=== PATIENT | female | born 1945 | race African-American/Black ===

== ENCOUNTER 2021-12-21 07:49 | Inpatient (IN) | payer OTHER, MEDICAID ==
[~2021-12-21] VITALS: Ht 165.1 cm; Wt 69.0 kg
[2021-12-21] MEDS ORDERED: SODIUM CHLORIDE 0.9% 1,000 ML IV ONE (08:00)
[2021-12-21 08:42] LABS: CHLORIDE 83 mEq/L (98-107)
[2021-12-21 08:43] LABS: EOSINOPHILS % 0.7 % (0.0-5.0); HEMATOCRIT. 32.5 % (36.0-48.0); HEMOGLOBIN. 11.1 g/dL (12.0-16.0); LYMPHOCYTES % 20.8 % (20.0-50.0); MEAN CORPUSCULAR HEMOGLOBIN 29.4 pg (28.0-32.0); MEAN CORPUSCULAR VOLUME 85.8 fL (81.0-99.0); MEAN PLATELET VOLUME 11.7 fl (7.4-10.4); MONOCYTES % 7.6 % (2.0-8.0); NEUTROPHILS % 69.9 % (40.0-76.0); PLATELET 198 x1000/uL (130-400); RED BLOOD CELL COUNT 3.78 mill/uL (4.2-5.4); RED CELL DISTRIBUTION WIDTH 12.2 % (11.6-14.6)
[2021-12-21 08:53] LABS: BETA HYDROXYBUTYRATE 0.2 mMol/L (0.0-0.3)
[2021-12-21 08:57] LABS: BG BASE EXCESS 10.2 mmol/L (-2.0-2.0); BG CARBOXYHEMOGLOBIN 0.1 % (0.5-1.5); BG DEOXYHEMOGLOBIN 1.3 % (0.0-5.0); BG FRACTION INSPIRED OXYGEN 21; BG HCO3 ACT 31.2 mmol/L (22.0-26.0); BG METHEMOGLOBIN 0.3 % (0.0-1.5); BG OXYGEN SATURATION 98.7 % (92.0-98.5); BG OXYHEMOGLOBIN 98.3 % (94.0-97.0); BG PCO2 29.8 mmHg (35.0-45.0); BG PH 7.638 (7.350-7.450); BG PO2 111.9 mmHg (75.0-100.0); BG SAMPLE SITE RIGHT RADIAL; BG TOTAL HEMOGLOBIN 11.2 g/dL (12.0-18.0); BG VENT MODE ROOM AIR
[2021-12-21] MEDS ORDERED: KCL 20MEQ/100ML PREMIX 100 ML IV ONE (10:00)
[2021-12-21] MEDS ORDERED: POTASSIUM CHLORIDE 20MEQ TABLET SR PO ONE (10:00)
[2021-12-21] MEDS ORDERED: BLOOD SUGAR DIAGNOSTIC STRIP TEST SCH (10:45)
[2021-12-21] MEDS ORDERED: DEXTROSE 50% WATER 50ML SYRINGE IV PRN (10:45)
[2021-12-21] MEDS ORDERED: IPRATROPIUM/ALBUTEROL 0.5-3(2.5)MG/3ML NEB NEB PRN (11:45)
[2021-12-21] MEDS ORDERED: ACETAMINOPHEN 650MG SUPP PR PRN (11:45)
[2021-12-21] MEDS ORDERED: LORAZEPAM 0.5MG TABLET PO PRN (11:45)
[2021-12-21] MEDS ORDERED: HYDROCODONE/ACETAMINOPHEN 5/325MG TABLET PO PRN (11:45)
[2021-12-21] MEDS ORDERED: ACETAMINOPHEN 650MG/20.3ML UDC GT PRN (11:45)
[2021-12-21] MEDS ORDERED: DOCUSATE SODIUM 100MG CAPSULE PO PRN (11:45)
[2021-12-21] MEDS ORDERED: DIPHENHYDRAMINE 50MG/ML VIAL IV PRN (11:45)
[2021-12-21] MEDS ORDERED: MAGNESIUM/ALUMINUM HYDROXIDE/SIMETHICONE 30ML UDC PO PRN (11:45)
[2021-12-21] MEDS ORDERED: ONDANSETRON HCL 4MG/2ML INJ IV PRN (11:45)
[2021-12-21] MEDS ORDERED: NA PHOS,M-B/NA PHOS,DI-BA ENEMA 118ML PR PRN (11:45)
[2021-12-21] MEDS ORDERED: GUAIFENESIN 200MG/10ML SUGAR FREE UDC PO PRN (11:45)
[2021-12-21] MEDS ORDERED: PIPERACILLIN/TAZOBACTAM 3.375 G in DEXTROSE 5% WATER 50 ML IV SCH (11:45)
[2021-12-21] MEDS: BLOOD SUGAR DIAGNOSTIC STRIP TEST SCH ×2 (12:00→15:42)
[2021-12-21] MEDS ORDERED: VANCOMYCIN 1G PREMIX 200 ML IV SCH (13:00)
[2021-12-21] MEDS ORDERED: PIPERACILLIN/TAZ 3.375G PREMIX 50 ML IV SCH (13:00)
[2021-12-21] MEDS ORDERED: NALOXONE HCL 0.4MG/ML VIAL IV PRN (13:00)
[2021-12-21 13:06] LABS: CLARITY URINE TURBID (CLEAR); COLOR URINE YELLOW (YELLOW); KETONES URINE NEGATIVE (NEGATIVE); LEUKOCYTE ESTERASE URINE 3+ (NEGATIVE); NITRITE URINE NEGATIVE (NEGATIVE); OCCULT BLOOD URINE 1+ (NEGATIVE); PROTEIN URINE 2+ (NEGATIVE); SPECIFIC GRAVITY URINE 1.012 (1.005-1.030); UROBILINOGEN URINE 0.2 E.U./dL (0.2-1.0)
[2021-12-21 13:20] LABS: SODIUM URINE RANDOM 62 mEq/L
[2021-12-21 13:23] LABS: PHOSPHORUS 3.3 mg/dL (2.5-4.9)
[2021-12-21] MEDS: INSULIN LISPRO 100 UNITS/ML SUBCUT SCH ×2 (14:00→15:51)
[2021-12-21] MEDS: SODIUM CHLORIDE 0.9% 1,000 ML IV SCH ×2 (15:32→23:32)
[2021-12-21 16:07] LABS: BG BASE EXCESS 8.3 mmol/L (-2.0-2.0); BG CARBOXYHEMOGLOBIN 0.3 % (0.5-1.5); BG DEOXYHEMOGLOBIN 1.8 % (0.0-5.0); BG FRACTION INSPIRED OXYGEN 21; BG HCO3 ACT 29.6 mmol/L (22.0-26.0); BG METHEMOGLOBIN 0.3 % (0.0-1.5); BG OXYGEN SATURATION 98.2 % (92.0-98.5); BG OXYHEMOGLOBIN 97.6 % (94.0-97.0); BG PCO2 29.7 mmHg (35.0-45.0); BG PH 7.616 (7.350-7.450); BG TOTAL HEMOGLOBIN 10.7 g/dL (12.0-18.0); BG VENT MODE ROOM AIR
[2021-12-21 18:00] VITALS: BP 138/69
[2021-12-21] MEDS: INSULIN GLARGINE UD 100 UNITS/ML SYR SUBCUT NR (18:00)
[2021-12-21 19:11] VITALS: BP 138/69
[2021-12-21 19:18] LABS: CREATINE KINASE MB FRACTION 4.8 ng/mL (0.5-3.6)
[2021-12-21 20:00] VITALS: BP 135/84
[2021-12-21] MEDS: FAMOTIDINE 20MG TABLET PO SCH (21:00)
[2021-12-21] MEDS ORDERED: POTASSIUM CHLORIDE INJ 50 MEQ in DEXT 5% WATER 250 ML IV ONE (21:45)
[2021-12-21] MEDS ORDERED: INSULIN GLARGINE UD 100 UNITS/ML SYR SUBCUT SCH (22:00)
[2021-12-22] VITALS: BP 140/61
[2021-12-22 00:21] LABS: CREATINE KINASE MB FRACTION 5.2 ng/mL (0.5-3.6)
[2021-12-22] MEDS: PIPERACILLIN/TAZOBACTAM 3.375 G in DEXTROSE 5% WATER 50 ML IV SCH ×3 (00:23→20:46)
[2021-12-22] MEDS: INSULIN GLARGINE UD 100 UNITS/ML SYR SUBCUT NR (00:54)
[2021-12-22] MEDS: INSULIN LISPRO 100 UNITS/ML SUBCUT SCH ×11 (01:27→20:00)
[2021-12-22] MEDS: BLOOD SUGAR DIAGNOSTIC STRIP TEST SCH ×11 (02:20→20:44)
[2021-12-22] MEDS: KCL 20MEQ/100ML X 2 FOR TOTAL KCL 40MEQ/200ML IV SCH ×2 (02:44→07:02)
[2021-12-22] MEDS ORDERED: KCL 10MEQ/50ML PREMIX 50 ML IV NR (03:00)
[2021-12-22 04:00] VITALS: BP 142/62
[2021-12-22 07:38] LABS: BASOPHILS % 0.7 % (0.0-2.0); EOSINOPHILS % 0.7 % (0.0-5.0); HEMATOCRIT. 27.6 % (36.0-48.0); HEMOGLOBIN. 9.8 g/dL (12.0-16.0); LYMPHOCYTES % 15.6 % (20.0-50.0); MEAN CORPUSCULAR HEMOGLOBIN 30.2 pg (28.0-32.0); MEAN CORPUSCULAR VOLUME 85.5 fL (81.0-99.0); MEAN PLATELET VOLUME 11.6 fl (7.4-10.4); MONOCYTES % 8.4 % (2.0-8.0); NEUTROPHILS % 74.6 % (40.0-76.0); PLATELET 172 x1000/uL (130-400); RED BLOOD CELL COUNT 3.22 mill/uL (4.2-5.4); RED CELL DISTRIBUTION WIDTH 12.5 % (11.6-14.6)
[2021-12-22 07:50] LABS: CHLORIDE 94 mEq/L (98-107)
[2021-12-22 08:00] VITALS: BP 118/62
[2021-12-22] MEDS ORDERED: POTASSIUM CHLORIDE 20MEQ TABLET SR PO SCH (10:00)
[2021-12-22] MEDS: INSULIN GLARGINE UD 100 UNITS/ML SYR SUBCUT SCH ×2 (10:49→21:21)
[2021-12-22 12:00] VITALS: BP 118/46
[2021-12-22] MEDS: POTASSIUM CHLORIDE 20MEQ TABLET SR PO SCH (12:19)
[2021-12-22] MEDS ORDERED: LIDOCAINE HCL/PF 1% 2ML VIAL ONE (14:10)
[2021-12-22] MEDS: SODIUM CHLORIDE 0.9% 1,000 ML IV SCH (14:16)
[2021-12-22 15:02] LABS: BG CARBOXYHEMOGLOBIN 0.3 % (0.5-1.5); BG HCO3 ACT 30.3 mmol/L (22.0-26.0); BG OXYHEMOGLOBIN 96.7 % (94.0-97.0); BG PCO2 38.1 mmHg (35.0-45.0); BG PH 7.518 (7.350-7.450); BG PO2 84.5 mmHg (75.0-100.0); BG SAMPLE SITE RIGHT RADIAL; BG TOTAL HEMOGLOBIN 10.4 g/dL (12.0-18.0); BG VENT MODE ROOM AIR
[2021-12-22 16:00] VITALS: BP 120/48
[2021-12-22 20:00] VITALS: BP 154/88
[2021-12-22] MEDS: FAMOTIDINE 20MG TABLET PO SCH (21:20)
[2021-12-23] VITALS: BP 162/63
[2021-12-23] MEDS: BLOOD SUGAR DIAGNOSTIC STRIP TEST SCH ×6 (00:19→20:00)
[2021-12-23] MEDS: INSULIN LISPRO 100 UNITS/ML SUBCUT SCH ×6 (00:20→22:31)
[2021-12-23 04:00] VITALS: BP 132/50
[2021-12-23 05:37] LABS: BASOPHILS % 0.7 % (0.0-2.0); EOSINOPHILS % 1.2 % (0.0-5.0); HEMATOCRIT. 28.2 % (36.0-48.0); HEMOGLOBIN. 9.6 g/dL (12.0-16.0); LYMPHOCYTES % 19.6 % (20.0-50.0); MEAN CORPUSCULAR HEMOGLOBIN 29.7 pg (28.0-32.0); MEAN CORPUSCULAR VOLUME 87.4 fL (81.0-99.0); MEAN PLATELET VOLUME 11.6 fl (7.4-10.4); NEUTROPHILS % 69.5 % (40.0-76.0); PLATELET 168 x1000/uL (130-400); RED BLOOD CELL COUNT 3.23 mill/uL (4.2-5.4); RED CELL DISTRIBUTION WIDTH 12.2 % (11.6-14.6)
[2021-12-23 07:54] LABS: BG BASE EXCESS 2.9 mmol/L (-2.0-2.0); BG CARBOXYHEMOGLOBIN 0.3 % (0.5-1.5); BG DEOXYHEMOGLOBIN 2.6 % (0.0-5.0); BG FRACTION INSPIRED OXYGEN 21; BG HCO3 ACT 26.6 mmol/L (22.0-26.0); BG METHEMOGLOBIN 0.2 % (0.0-1.5); BG OXYGEN SATURATION 97.4 % (92.0-98.5); BG OXYHEMOGLOBIN 96.9 % (94.0-97.0); BG PCO2 37.2 mmHg (35.0-45.0); BG PH 7.472 (7.350-7.450); BG PO2 99.5 mmHg (75.0-100.0); BG SAMPLE SITE RIGHT RADIAL; BG TOTAL HEMOGLOBIN 9.6 g/dL (12.0-18.0); BG VENT MODE ROOM AIR
[2021-12-23 08:00] VITALS: BP 166/81
[2021-12-23] MEDS: POTASSIUM CHLORIDE 20MEQ TABLET SR PO SCH (09:29)
[2021-12-23] MEDS: CLONIDINE 0.1MG TABLET PO PRN (09:29)
[2021-12-23] MEDS: PIPERACILLIN/TAZOBACTAM 3.375 G in DEXTROSE 5% WATER 50 ML IV SCH ×2 (09:29→22:30)
[2021-12-23] MEDS: SODIUM CHLORIDE 0.9% 1,000 ML IV SCH (09:29)
[2021-12-23] MEDS: INSULIN GLARGINE UD 100 UNITS/ML SYR SUBCUT SCH ×2 (11:08→22:30)
[2021-12-23 12:00] VITALS: BP 131/57
[2021-12-23 16:00] VITALS: BP 127/55
[2021-12-23 20:00] VITALS: BP 148/62
[2021-12-23] MEDS: FAMOTIDINE 20MG TABLET PO SCH (22:30)
[2021-12-24] VITALS (16 sets, daily range): BP systolic 143–185; BP diastolic 63–73
[2021-12-24] MEDS: INSULIN LISPRO 100 UNITS/ML SUBCUT SCH ×6 (00:26→21:22)
[2021-12-24] MEDS: BLOOD SUGAR DIAGNOSTIC STRIP TEST SCH ×6 (00:26→20:00)
[2021-12-24 02:13] LABS: HEPATITIS B SURFACE ANTIGEN NEGATIVE
[2021-12-24] MEDS: SODIUM CHLORIDE 0.9% 1,000 ML IV SCH ×2 (04:32→23:31)
[2021-12-24] MEDS: CLONIDINE 0.1MG TABLET PO PRN (05:24)
[2021-12-24] MEDS: POTASSIUM CHLORIDE 20MEQ TABLET SR PO SCH (09:05)
[2021-12-24] MEDS: PIPERACILLIN/TAZOBACTAM 3.375 G in DEXTROSE 5% WATER 50 ML IV SCH (09:05)
[2021-12-24 09:22] LABS: PROTHROMBIN TIME 10.9 sec (9.6-11.0)
[2021-12-24] MEDS ORDERED: HEPARIN 1000 UNITS/ML 10ML ONE (09:29)
[2021-12-24] MEDS ORDERED: LIDOCAINE HCL 1% 30ML VIAL (10MG/ML) ONE (09:29)
[2021-12-24] MEDS: INSULIN GLARGINE UD 100 UNITS/ML SYR SUBCUT SCH ×2 (10:00→21:22)
[2021-12-24] MEDS ORDERED: FENTANYL CITRATE/PF 50MCG/ML 2ML VIAL ONE (10:27)
[2021-12-24] MEDS ORDERED: FENTANYL CITRATE/PF 50MCG/ML 2ML VIAL IV ONE (10:45)
[2021-12-24 16:25] LABS: BASOPHILS % 0.9 % (0.0-2.0); EOSINOPHILS % 1.7 % (0.0-5.0); HEMOGLOBIN. 8.8 g/dL (12.0-16.0); LYMPHOCYTES % 15.5 % (20.0-50.0); MEAN CORPUSCULAR HEMOGLOBIN 30.4 pg (28.0-32.0); MEAN CORPUSCULAR VOLUME 89.5 fL (81.0-99.0); MEAN PLATELET VOLUME 11.2 fl (7.4-10.4); MONOCYTES % 7.6 % (2.0-8.0); NEUTROPHILS % 74.3 % (40.0-76.0); PLATELET 171 x1000/uL (130-400); RED BLOOD CELL COUNT 2.91 mill/uL (4.2-5.4); RED CELL DISTRIBUTION WIDTH 12.7 % (11.6-14.6)
[2021-12-24] MEDS ORDERED: MEROPENEM 500 MG in SODIUM CHLORIDE 0.9% 50 ML IV SCH (16:30)
[2021-12-24 17:31] LABS: CHLORIDE 108 mEq/L (98-107)
[2021-12-24] MEDS: MEROPENEM 1000MG in NORMAL SALINE 100ML IV SCH (17:33)
[2021-12-24] MEDS ORDERED: VANCOMYCIN 500MG PREMIX 100 ML IV SCH (21:00)
[2021-12-24] MEDS: FAMOTIDINE 20MG TABLET PO SCH (21:21)
[2021-12-25] VITALS: BP 161/72
[2021-12-25] MEDS: BLOOD SUGAR DIAGNOSTIC STRIP TEST SCH ×7 (00:31→23:47)
[2021-12-25] MEDS: CLONIDINE 0.1MG TABLET PO PRN ×2 (00:44→10:23)
[2021-12-25 04:00] VITALS: BP 121/67
[2021-12-25] MEDS: INSULIN LISPRO 100 UNITS/ML SUBCUT SCH ×7 (04:00→23:48)
[2021-12-25 07:36] LABS: BASOPHILS % 0.8 % (0.0-2.0); HEMATOCRIT. 25.7 % (36.0-48.0); HEMOGLOBIN. 8.9 g/dL (12.0-16.0); LYMPHOCYTES % 17.2 % (20.0-50.0); MEAN CORPUSCULAR HEMOGLOBIN 30.5 pg (28.0-32.0); MEAN CORPUSCULAR VOLUME 87.9 fL (81.0-99.0); MEAN PLATELET VOLUME 11.1 fl (7.4-10.4); MONOCYTES % 9.3 % (2.0-8.0); NEUTROPHILS % 70.7 % (40.0-76.0); PLATELET 165 x1000/uL (130-400); RED BLOOD CELL COUNT 2.92 mill/uL (4.2-5.4); RED CELL DISTRIBUTION WIDTH 12.4 % (11.6-14.6)
[2021-12-25 08:00] VITALS: BP 166/68
[2021-12-25] MEDS: POTASSIUM CHLORIDE 20MEQ TABLET SR PO SCH (09:00)
[2021-12-25] MEDS ORDERED: HEPARIN SODIUM 1,000 UNIT/1ML VIAL IV SCH (09:00)
[2021-12-25] MEDS: INSULIN GLARGINE UD 100 UNITS/ML SYR SUBCUT SCH ×2 (10:22→22:11)
[2021-12-25 12:00] VITALS: BP 149/68
[2021-12-25 16:00] VITALS: BP 145/56
[2021-12-25] MEDS: MEROPENEM 1000MG in NORMAL SALINE 100ML IV SCH (17:27)
[2021-12-25 20:00] VITALS: BP 159/67
[2021-12-25] MEDS: SODIUM CHLORIDE 0.9% 1,000 ML IV SCH (20:26)
[2021-12-25] MEDS: FAMOTIDINE 20MG TABLET PO SCH (22:10)
[2021-12-26] VITALS: BP 167/58
[2021-12-26 04:00] VITALS: BP 110/59
[2021-12-26] MEDS: BLOOD SUGAR DIAGNOSTIC STRIP TEST SCH ×5 (04:00→20:37)
[2021-12-26] MEDS: INSULIN LISPRO 100 UNITS/ML SUBCUT SCH ×5 (04:00→20:38)
[2021-12-26 08:00] VITALS: BP 130/58
[2021-12-26] MEDS: POTASSIUM CHLORIDE 20MEQ TABLET SR PO SCH ×2 (09:00→13:08)
[2021-12-26] MEDS ORDERED: LIDOCAINE HCL/PF 1% 10 MG/ML 5ML VIAL ONE (09:06)
[2021-12-26] MEDS: INSULIN GLARGINE UD 100 UNITS/ML SYR SUBCUT SCH (10:28)
[2021-12-26 12:00] VITALS: BP 138/53
[2021-12-26 12:47] LABS: HEMATOCRIT 29.4 % (36.0-48.0); HEMOGLOBIN 9.8 g/dL (12.0-16.0); MEAN CORPUSCULAR HEMOGLOBIN 29.8 pg (28.0-32.0); MEAN CORPUSCULAR VOLUME 89.3 fL (81.0-99.0); PLATELET 132 x1000/uL (130-400); RED CELL DISTRIBUTION WIDTH 12.8 % (11.6-14.6)
[2021-12-26 16:00] VITALS: BP 159/52
[2021-12-26] MEDS: MEROPENEM 1000MG in NORMAL SALINE 100ML IV SCH (18:00)
[2021-12-26 20:00] VITALS: BP 169/67
[2021-12-26] MEDS: FAMOTIDINE 20MG TABLET PO SCH (20:38)
[2021-12-26] MEDS: CLONIDINE 0.1MG TABLET PO PRN (20:39)
[2021-12-27] VITALS: BP 171/81
[2021-12-27] MEDS: BLOOD SUGAR DIAGNOSTIC STRIP TEST SCH ×6 (00:51→20:00)
[2021-12-27 01:21] LABS: BASOPHILS % 0.9 % (0.0-2.0); EOSINOPHILS % 1.8 % (0.0-5.0); HEMATOCRIT. 24.3 % (36.0-48.0); HEMOGLOBIN. 8.2 g/dL (12.0-16.0); MEAN CORPUSCULAR HEMOGLOBIN 30.3 pg (28.0-32.0); MEAN CORPUSCULAR VOLUME 89.7 fL (81.0-99.0); MEAN PLATELET VOLUME 10.3 fl (7.4-10.4); MONOCYTES % 9.8 % (2.0-8.0); NEUTROPHILS % 65.5 % (40.0-76.0); PLATELET 160 x1000/uL (130-400); RED BLOOD CELL COUNT 2.71 mill/uL (4.2-5.4); RED CELL DISTRIBUTION WIDTH 12.5 % (11.6-14.6)
[2021-12-27] MEDS: CLONIDINE 0.1MG TABLET PO PRN (02:05)
[2021-12-27] MEDS: INSULIN LISPRO 100 UNITS/ML SUBCUT SCH ×6 (04:00→22:54)
[2021-12-27] MEDS: CLONIDINE 0.2MG TABLET PO PRN (06:27)
[2021-12-27 08:00] VITALS: BP 109/43
[2021-12-27] MEDS ORDERED: INSULIN GLARGINE UD 100 UNITS/ML SYR SUBCUT SCH (09:00)
[2021-12-27] MEDS: POTASSIUM CHLORIDE 20MEQ TABLET SR PO SCH (09:41)
[2021-12-27] MEDS ORDERED: HYDR-4135 MT (09:58)
[2021-12-27 12:00] VITALS: BP 172/79
[2021-12-27] MEDS: HYDRALAZINE HCL 50MG TABLET PO SCH ×2 (15:05→22:53)
[2021-12-27 16:00] VITALS: BP 135/57
[2021-12-27] MEDS: MEROPENEM 1000MG in NORMAL SALINE 100ML IV SCH (17:27)
[2021-12-27 20:00] VITALS: BP 140/65
[2021-12-27] MEDS: FAMOTIDINE 20MG TABLET PO SCH (22:52)
[2021-12-28] VITALS: BP 164/65
[2021-12-28] MEDS: BLOOD SUGAR DIAGNOSTIC STRIP TEST SCH ×7 (00:36→23:56)
[2021-12-28 04:00] VITALS: BP 157/69
[2021-12-28] MEDS: INSULIN LISPRO 100 UNITS/ML SUBCUT SCH ×7 (04:00→23:57)
[2021-12-28] MEDS: HYDRALAZINE HCL 50MG TABLET PO SCH ×3 (05:40→21:04)
[2021-12-28 07:16] LABS: BASOPHILS % 1.1 % (0.0-2.0); EOSINOPHILS % 1.9 % (0.0-5.0); HEMATOCRIT. 22.9 % (36.0-48.0); HEMOGLOBIN. 7.8 g/dL (12.0-16.0); LYMPHOCYTES % 22.5 % (20.0-50.0); MEAN CORPUSCULAR HEMOGLOBIN 30.6 pg (28.0-32.0); MEAN CORPUSCULAR VOLUME 89.6 fL (81.0-99.0); MONOCYTES % 10.2 % (2.0-8.0); NEUTROPHILS % 64.3 % (40.0-76.0); PLATELET 152 x1000/uL (130-400); RED BLOOD CELL COUNT 2.55 mill/uL (4.2-5.4); RED CELL DISTRIBUTION WIDTH 12.7 % (11.6-14.6)
[2021-12-28 08:00] VITALS: BP 166/62
[2021-12-28] MEDS: POTASSIUM CHLORIDE 20MEQ TABLET SR PO SCH (09:20)
[2021-12-28] MEDS: CLONIDINE 0.2MG TABLET PO PRN (09:20)
[2021-12-28] MEDS: INSULIN GLARGINE UD 100 UNITS/ML SYR SUBCUT SCH (10:33)
[2021-12-28 12:00] VITALS: BP 164/59
[2021-12-28] MEDS: MEROPENEM 1000MG in NORMAL SALINE 100ML IV SCH (18:08)
[2021-12-28 20:00] VITALS: BP 164/60
[2021-12-28] MEDS: FAMOTIDINE 20MG TABLET PO SCH (21:04)
[2021-12-28 22:37] LABS: HEPATITIS B SURFACE ANTIGEN NEGATIVE
[2021-12-29] VITALS: BP 169/57
[2021-12-29] MEDS: BLOOD SUGAR DIAGNOSTIC STRIP TEST SCH ×5 (03:54→21:41)
[2021-12-29] MEDS: INSULIN LISPRO 100 UNITS/ML SUBCUT SCH ×5 (03:54→21:54)
[2021-12-29 04:00] VITALS: BP 145/59
[2021-12-29] MEDS: HYDRALAZINE HCL 50MG TABLET PO SCH ×3 (05:27→21:52)
[2021-12-29 08:00] VITALS: BP 113/65
[2021-12-29] MEDS: POTASSIUM CHLORIDE 20MEQ TABLET SR PO SCH (08:22)
[2021-12-29] MEDS: INSULIN GLARGINE UD 100 UNITS/ML SYR SUBCUT SCH (10:27)
[2021-12-29 12:00] VITALS: BP 140/72
[2021-12-29 16:00] VITALS: BP 118/65
[2021-12-29 20:00] VITALS: BP 128/53
[2021-12-29] MEDS: FAMOTIDINE 20MG TABLET PO SCH (21:52)
[2021-12-30] VITALS: BP 138/60
[2021-12-30 04:00] VITALS: BP 155/55
[2021-12-30] MEDS: BLOOD SUGAR DIAGNOSTIC STRIP TEST SCH ×4 (06:34→21:24)
[2021-12-30] MEDS: INSULIN LISPRO 100 UNITS/ML SUBCUT SCH ×4 (06:34→21:25)
[2021-12-30] MEDS: HYDRALAZINE HCL 50MG TABLET PO SCH ×3 (06:57→21:24)
[2021-12-30 07:49] LABS: BASOPHILS % 0.8 % (0.0-2.0); EOSINOPHILS % 1.5 % (0.0-5.0); LYMPHOCYTES % 19.2 % (20.0-50.0); MEAN CORPUSCULAR HEMOGLOBIN 30.4 pg (28.0-32.0); MEAN CORPUSCULAR VOLUME 89.4 fL (81.0-99.0); MEAN PLATELET VOLUME 10.2 fl (7.4-10.4); MONOCYTES % 10.6 % (2.0-8.0); NEUTROPHILS % 67.9 % (40.0-76.0); PLATELET 159 x1000/uL (130-400); RED BLOOD CELL COUNT 2.33 mill/uL (4.2-5.4)
[2021-12-30 08:00] VITALS: BP 103/61
[2021-12-30 08:38] LABS: HEMOGLOBIN. 7.1 g/dL (12.0-16.0)
[2021-12-30 08:39] LABS: HEMATOCRIT. 20.8 % (36.0-48.0)
[2021-12-30] MEDS: POTASSIUM CHLORIDE 20MEQ TABLET SR PO SCH (08:54)
[2021-12-30] MEDS: INSULIN GLARGINE UD 100 UNITS/ML SYR SUBCUT SCH (09:30)
[2021-12-30 11:57] VITALS: BP 142/56
[2021-12-30 16:00] VITALS: BP 126/63
[2021-12-30 20:00] VITALS: BP 135/60
[2021-12-30] MEDS: FAMOTIDINE 20MG TABLET PO SCH (21:24)
[2021-12-31] VITALS (12 sets, daily range): BP systolic 112–190; BP diastolic 42–85
[2021-12-31] MEDS: CLONIDINE 0.2MG TABLET PO PRN ×2 (00:21→15:57)
[2021-12-31] MEDS: BLOOD SUGAR DIAGNOSTIC STRIP TEST SCH ×4 (06:08→20:26)
[2021-12-31] MEDS: INSULIN LISPRO 100 UNITS/ML SUBCUT SCH ×4 (06:08→20:29)
[2021-12-31] MEDS: HYDRALAZINE HCL 50MG TABLET PO SCH ×3 (06:39→22:57)
[2021-12-31 07:58] LABS: BASOPHILS % 0.9 % (0.0-2.0); EOSINOPHILS % 1.8 % (0.0-5.0); MEAN CORPUSCULAR HEMOGLOBIN 30.3 pg (28.0-32.0); MEAN CORPUSCULAR VOLUME 90.2 fL (81.0-99.0); MEAN PLATELET VOLUME 10.1 fl (7.4-10.4); MONOCYTES % 9.5 % (2.0-8.0); NEUTROPHILS % 63.8 % (40.0-76.0); PLATELET 153 x1000/uL (130-400); RED BLOOD CELL COUNT 2.16 mill/uL (4.2-5.4); RED CELL DISTRIBUTION WIDTH 12.9 % (11.6-14.6)
[2021-12-31 08:01] LABS: HEMATOCRIT. 19.5 % (36.0-48.0); HEMOGLOBIN. 6.5 g/dL (12.0-16.0)
[2021-12-31] MEDS: POTASSIUM CHLORIDE 20MEQ TABLET SR PO SCH (09:50)
[2021-12-31] MEDS: INSULIN GLARGINE UD 100 UNITS/ML SYR SUBCUT SCH (09:51)
[2021-12-31 18:11] LABS: HEMOGLOBIN 7.8 g/dL (12.0-16.0)
[2021-12-31 18:37] LABS: FOLIC ACID (FOLATE) SERUM 4.1 ng/mL (>5.38)
[2021-12-31 18:40] LABS: TOTAL IRON BINDING CAPACITY 186 ug/dL (250-450)
[2021-12-31] MEDS: FAMOTIDINE 20MG TABLET PO SCH (20:27)
[2021-12-31] MEDS: EPOETIN ALFA 10000UNITS/ML VIAL SUBCUT SCH (22:57)
[2022-01-01] VITALS: BP 179/81
[2022-01-01] MEDS: CLONIDINE 0.2MG TABLET PO PRN (01:42)
[2022-01-01 04:00] VITALS: BP 184/77
[2022-01-01] MEDS: HYDRALAZINE HCL 50MG TABLET PO SCH ×4 (05:41→23:08)
[2022-01-01] MEDS: BLOOD SUGAR DIAGNOSTIC STRIP TEST SCH ×4 (05:45→21:57)
[2022-01-01] MEDS: INSULIN LISPRO 100 UNITS/ML SUBCUT SCH ×4 (06:21→23:09)
[2022-01-01 06:30] LABS: EOSINOPHILS % 1.9 % (0.0-5.0); HEMATOCRIT. 24.8 % (36.0-48.0); HEMOGLOBIN. 8.3 g/dL (12.0-16.0); MEAN CORPUSCULAR HEMOGLOBIN 28.9 pg (28.0-32.0); MEAN CORPUSCULAR VOLUME 86.1 fL (81.0-99.0); MEAN PLATELET VOLUME 9.6 fl (7.4-10.4); MONOCYTES % 7.8 % (2.0-8.0); NEUTROPHILS % 67.3 % (40.0-76.0); PLATELET 156 x1000/uL (130-400); RED BLOOD CELL COUNT 2.88 mill/uL (4.2-5.4); RED CELL DISTRIBUTION WIDTH 17.8 % (11.6-14.6)
[2022-01-01 08:00] VITALS: BP 162/59
[2022-01-01] MEDS: POTASSIUM CHLORIDE 20MEQ TABLET SR PO SCH (09:11)
[2022-01-01] MEDS: INSULIN GLARGINE UD 100 UNITS/ML SYR SUBCUT SCH (10:13)
[2022-01-01 12:00] VITALS: BP 170/70
[2022-01-01 16:00] VITALS: BP 189/78
[2022-01-01 20:00] VITALS: BP 163/62
[2022-01-01] MEDS: PANTOPRAZOLE 40MG DR TABLET PO SCH (23:07)
[2022-01-02] VITALS: BP 195/76
[2022-01-02] MEDS: CLONIDINE 0.2MG TABLET PO PRN ×2 (00:25→09:42)
[2022-01-02 04:00] VITALS: BP 191/75
[2022-01-02] MEDS: INSULIN LISPRO 100 UNITS/ML SUBCUT SCH ×4 (06:46→20:57)
[2022-01-02] MEDS: BLOOD SUGAR DIAGNOSTIC STRIP TEST SCH ×4 (06:46→20:57)
[2022-01-02] MEDS: HYDRALAZINE HCL 50MG TABLET PO SCH ×3 (06:47→20:57)
[2022-01-02] MEDS: PANTOPRAZOLE 40MG DR TABLET PO SCH ×2 (06:47→20:55)
[2022-01-02 07:26] LABS: BASOPHILS % 1.1 % (0.0-2.0); EOSINOPHILS % 1.8 % (0.0-5.0); HEMATOCRIT. 23.7 % (36.0-48.0); HEMOGLOBIN. 8.1 g/dL (12.0-16.0); LYMPHOCYTES % 21.8 % (20.0-50.0); MEAN CORPUSCULAR VOLUME 85.2 fL (81.0-99.0); MEAN PLATELET VOLUME 9.9 fl (7.4-10.4); MONOCYTES % 8.7 % (2.0-8.0); NEUTROPHILS % 66.6 % (40.0-76.0); PLATELET 154 x1000/uL (130-400); RED BLOOD CELL COUNT 2.79 mill/uL (4.2-5.4)
[2022-01-02 08:00] VITALS: BP 176/70
[2022-01-02] MEDS: POTASSIUM CHLORIDE 20MEQ TABLET SR PO SCH (09:41)
[2022-01-02] MEDS: INSULIN GLARGINE UD 100 UNITS/ML SYR SUBCUT SCH (09:44)
[2022-01-02] MEDS ORDERED: INSULIN LISPRO 100 UNITS/ML SUBCUT ONE (11:45)
[2022-01-02 12:00] VITALS: BP 187/96
[2022-01-02 16:00] VITALS: BP 183/81
[2022-01-02] MEDS ORDERED: HYDRALAZINE HCL 50MG TABLET PO NR (17:00)
[2022-01-02 20:00] VITALS: BP 191/74
[2022-01-02] MEDS: EPOETIN ALFA 10000UNITS/ML VIAL SUBCUT SCH (20:56)
[2022-01-03] VITALS: BP 191/73
[2022-01-03] MEDS: CLONIDINE 0.2MG TABLET PO PRN ×3 (00:35→05:46)
[2022-01-03 04:00] VITALS: BP 180/83
[2022-01-03] MEDS: HYDRALAZINE HCL 50MG TABLET PO SCH ×3 (04:23→21:13)
[2022-01-03] MEDS: PANTOPRAZOLE 40MG DR TABLET PO SCH ×2 (05:46→21:10)
[2022-01-03] MEDS: INSULIN LISPRO 100 UNITS/ML SUBCUT SCH ×4 (05:47→21:10)
[2022-01-03] MEDS: BLOOD SUGAR DIAGNOSTIC STRIP TEST SCH ×4 (05:47→20:58)
[2022-01-03 07:19] LABS: EOSINOPHILS % 1.9 % (0.0-5.0); HEMATOCRIT. 24.9 % (36.0-48.0); HEMOGLOBIN. 8.4 g/dL (12.0-16.0); LYMPHOCYTES % 21.1 % (20.0-50.0); MEAN CORPUSCULAR HEMOGLOBIN 29.1 pg (28.0-32.0); MEAN PLATELET VOLUME 9.8 fl (7.4-10.4); PLATELET 158 x1000/uL (130-400); RED CELL DISTRIBUTION WIDTH 17.6 % (11.6-14.6)
[2022-01-03 08:00] VITALS: BP 112/50
[2022-01-03] MEDS ORDERED: MINOXIDIL 2.5MG TABLET PO SCH (08:00)
[2022-01-03] MEDS: POTASSIUM CHLORIDE 20MEQ TABLET SR PO SCH (09:27)
[2022-01-03] MEDS: INSULIN GLARGINE UD 100 UNITS/ML SYR SUBCUT SCH (09:28)
[2022-01-03 12:00] VITALS: BP 119/44
[2022-01-03] MEDS: DILTIAZEM HCL 30MG TABLET PO SCH ×2 (13:01→18:00)
[2022-01-03] MEDS ORDERED: MINO2.5T2 MT (13:14)
[2022-01-03] MEDS ORDERED: LACTULOSE 20G/30ML UDC PO NR (13:15)
[2022-01-03 15:32] VITALS: BP 101/44
[2022-01-03] MEDS: DOCUSATE SODIUM 100MG CAPSULE PO SCH (17:00)
[2022-01-03 20:00] VITALS: BP 97/42
[2022-01-04] VITALS: BP 105/41
[2022-01-04 04:00] VITALS: BP 113/42
[2022-01-04] MEDS: HYDRALAZINE HCL 50MG TABLET PO SCH ×3 (06:00→22:00)
[2022-01-04] MEDS: BLOOD SUGAR DIAGNOSTIC STRIP TEST SCH ×4 (06:29→21:24)
[2022-01-04] MEDS: INSULIN LISPRO 100 UNITS/ML SUBCUT SCH ×4 (06:29→21:32)
[2022-01-04] MEDS: PANTOPRAZOLE 40MG DR TABLET PO SCH ×2 (06:30→21:24)
[2022-01-04] MEDS: DILTIAZEM HCL 30MG TABLET PO SCH ×3 (06:30→18:12)
[2022-01-04 08:29] LABS: BASOPHILS % 0.9 % (0.0-2.0); EOSINOPHILS % 1.6 % (0.0-5.0); HEMATOCRIT. 22.8 % (36.0-48.0); HEMOGLOBIN. 7.8 g/dL (12.0-16.0); LYMPHOCYTES % 23.4 % (20.0-50.0); MEAN CORPUSCULAR HEMOGLOBIN 29.1 pg (28.0-32.0); MEAN CORPUSCULAR VOLUME 85.5 fL (81.0-99.0); MEAN PLATELET VOLUME 9.8 fl (7.4-10.4); MONOCYTES % 8.4 % (2.0-8.0); NEUTROPHILS % 65.7 % (40.0-76.0); PLATELET 165 x1000/uL (130-400); RED BLOOD CELL COUNT 2.67 mill/uL (4.2-5.4); RED CELL DISTRIBUTION WIDTH 17.3 % (11.6-14.6)
[2022-01-04] MEDS: DOCUSATE SODIUM 100MG CAPSULE PO SCH ×2 (09:00→17:00)
[2022-01-04] MEDS: MINOXIDIL 2.5MG TABLET PO SCH (10:06)
[2022-01-04] MEDS: POTASSIUM CHLORIDE 20MEQ TABLET SR PO SCH (10:06)
[2022-01-04] MEDS: INSULIN GLARGINE UD 100 UNITS/ML SYR SUBCUT SCH (10:08)
[2022-01-04 12:00] VITALS: BP 92/28
[2022-01-04 15:11] LABS: HEPATITIS B SURFACE ANTIGEN NEGATIVE
[2022-01-04 16:00] VITALS: BP 115/81
[2022-01-04] MEDS ORDERED: EPOETIN ALFA-EPBX 10,000 UNIT/ML VIAL SUBCUT SCH (21:00)
[2022-01-05] VITALS: BP 107/47
[2022-01-05] MEDS: BLOOD SUGAR DIAGNOSTIC STRIP TEST SCH ×4 (06:19→21:00)
[2022-01-05] MEDS: INSULIN LISPRO 100 UNITS/ML SUBCUT SCH ×4 (06:19→22:09)
[2022-01-05] MEDS: PANTOPRAZOLE 40MG DR TABLET PO SCH ×2 (06:36→22:09)
[2022-01-05] MEDS: HYDRALAZINE HCL 50MG TABLET PO SCH ×3 (06:36→22:09)
[2022-01-05 07:43] LABS: EOSINOPHILS % 1.7 % (0.0-5.0); HEMATOCRIT. 22.3 % (36.0-48.0); HEMOGLOBIN. 7.5 g/dL (12.0-16.0); LYMPHOCYTES % 23.7 % (20.0-50.0); MEAN CORPUSCULAR HEMOGLOBIN 29.1 pg (28.0-32.0); MEAN PLATELET VOLUME 9.1 fl (7.4-10.4); MONOCYTES % 11.8 % (2.0-8.0); NEUTROPHILS % 61.8 % (40.0-76.0); PLATELET 182 x1000/uL (130-400); RED BLOOD CELL COUNT 2.59 mill/uL (4.2-5.4); RED CELL DISTRIBUTION WIDTH 17.3 % (11.6-14.6)
[2022-01-05 08:00] VITALS: BP 119/45
[2022-01-05] MEDS: POTASSIUM CHLORIDE 20MEQ TABLET SR PO SCH (09:00)
[2022-01-05] MEDS: DOCUSATE SODIUM 100MG CAPSULE PO SCH ×2 (09:00→17:00)
[2022-01-05] MEDS: MINOXIDIL 2.5MG TABLET PO SCH (10:14)
[2022-01-05] MEDS: DILTIAZEM HCL 30MG TABLET PO SCH ×2 (10:14→17:49)
[2022-01-05] MEDS: INSULIN GLARGINE UD 100 UNITS/ML SYR SUBCUT SCH (10:29)
[2022-01-05 12:00] VITALS: BP 121/45
[2022-01-05 16:00] VITALS: BP 127/49
[2022-01-05 20:00] VITALS: BP 125/63
[2022-01-06] VITALS: BP 128/51
[2022-01-06 04:00] VITALS: BP 104/50
[2022-01-06] MEDS: BLOOD SUGAR DIAGNOSTIC STRIP TEST SCH ×4 (05:30→21:00)
[2022-01-06] MEDS: HYDRALAZINE HCL 50MG TABLET PO SCH ×3 (05:30→21:45)
[2022-01-06] MEDS: PANTOPRAZOLE 40MG DR TABLET PO SCH ×2 (05:36→21:45)
[2022-01-06 08:00] VITALS: BP 135/67
[2022-01-06] MEDS: DOCUSATE SODIUM 100MG CAPSULE PO SCH ×2 (09:00→16:49)
[2022-01-06] MEDS: POTASSIUM CHLORIDE 20MEQ TABLET SR PO SCH (09:00)
[2022-01-06] MEDS: DILTIAZEM HCL 30MG TABLET PO SCH ×2 (09:47→17:49)
[2022-01-06] MEDS: MINOXIDIL 2.5MG TABLET PO SCH (09:47)
[2022-01-06] MEDS: INSULIN GLARGINE UD 100 UNITS/ML SYR SUBCUT SCH (09:49)
[2022-01-06 12:00] VITALS: BP 127/49
[2022-01-06] MEDS: INSULIN LISPRO 100 UNITS/ML SUBCUT SCH ×3 (12:45→23:18)
[2022-01-06 16:00] VITALS: BP 126/49
[2022-01-06 20:00] VITALS: BP 128/56
[2022-01-07] VITALS: BP 132/57
[2022-01-07 04:00] VITALS: BP 130/58
[2022-01-07 06:27] LABS: BASOPHILS % 1.3 % (0.0-2.0); EOSINOPHILS % 2.2 % (0.0-5.0); HEMATOCRIT. 22.9 % (36.0-48.0); HEMOGLOBIN. 7.7 g/dL (12.0-16.0); LYMPHOCYTES % 20.5 % (20.0-50.0); MEAN CORPUSCULAR HEMOGLOBIN 29.5 pg (28.0-32.0); MEAN CORPUSCULAR VOLUME 87.7 fL (81.0-99.0); MEAN PLATELET VOLUME 9.5 fl (7.4-10.4); MONOCYTES % 9.1 % (2.0-8.0); NEUTROPHILS % 66.9 % (40.0-76.0); PLATELET 199 x1000/uL (130-400); RED BLOOD CELL COUNT 2.61 mill/uL (4.2-5.4); RED CELL DISTRIBUTION WIDTH 17.5 % (11.6-14.6)
[2022-01-07] MEDS: BLOOD SUGAR DIAGNOSTIC STRIP TEST SCH ×4 (06:45→20:15)
[2022-01-07] MEDS: PANTOPRAZOLE 40MG DR TABLET PO SCH ×2 (06:52→20:34)
[2022-01-07] MEDS: HYDRALAZINE HCL 50MG TABLET PO SCH ×3 (06:52→21:34)
[2022-01-07] MEDS: INSULIN LISPRO 100 UNITS/ML SUBCUT SCH ×4 (06:53→20:19)
[2022-01-07 07:22] LABS: PHOSPHORUS 3.4 mg/dL (2.5-4.9)
[2022-01-07] MEDS: POTASSIUM CHLORIDE 20MEQ TABLET SR PO SCH (09:00)
[2022-01-07] MEDS: DILTIAZEM HCL 30MG TABLET PO SCH ×2 (09:00→17:00)
[2022-01-07] MEDS: MINOXIDIL 2.5MG TABLET PO SCH (09:00)
[2022-01-07] MEDS: DOCUSATE SODIUM 100MG CAPSULE PO SCH ×2 (09:00→17:00)
[2022-01-07] MEDS: INSULIN GLARGINE UD 100 UNITS/ML SYR SUBCUT SCH (09:46)
[2022-01-07 20:00] VITALS: BP 135/55
[2022-01-08] VITALS: BP 132/49
[2022-01-08 04:00] VITALS: BP 126/50
[2022-01-08] MEDS: HYDRALAZINE HCL 50MG TABLET PO SCH ×3 (06:00→21:02)
[2022-01-08] MEDS: BLOOD SUGAR DIAGNOSTIC STRIP TEST SCH ×4 (06:00→20:27)
[2022-01-08] MEDS: PANTOPRAZOLE 40MG DR TABLET PO SCH ×2 (06:00→20:31)
[2022-01-08] MEDS: INSULIN LISPRO 100 UNITS/ML SUBCUT SCH ×4 (06:17→20:31)
[2022-01-08 07:03] LABS: EOSINOPHILS % 2.1 % (0.0-5.0); HEMATOCRIT. 22.5 % (36.0-48.0); HEMOGLOBIN. 7.6 g/dL (12.0-16.0); LYMPHOCYTES % 23.6 % (20.0-50.0); MEAN CORPUSCULAR HEMOGLOBIN 29.3 pg (28.0-32.0); MEAN CORPUSCULAR VOLUME 87.2 fL (81.0-99.0); MEAN PLATELET VOLUME 8.9 fl (7.4-10.4); MONOCYTES % 11.9 % (2.0-8.0); NEUTROPHILS % 61.4 % (40.0-76.0); PLATELET 207 x1000/uL (130-400); RED BLOOD CELL COUNT 2.58 mill/uL (4.2-5.4); RED CELL DISTRIBUTION WIDTH 17.8 % (11.6-14.6)
[2022-01-08 08:00] VITALS: BP 132/50
[2022-01-08] MEDS: MINOXIDIL 2.5MG TABLET PO SCH (08:41)
[2022-01-08] MEDS: POTASSIUM CHLORIDE 20MEQ TABLET SR PO SCH (08:42)
[2022-01-08] MEDS: DILTIAZEM HCL 30MG TABLET PO SCH ×2 (08:42→16:01)
[2022-01-08] MEDS: DOCUSATE SODIUM 100MG CAPSULE PO SCH ×2 (08:43→16:25)
[2022-01-08] MEDS: INSULIN GLARGINE UD 100 UNITS/ML SYR SUBCUT SCH (11:18)
[2022-01-08 12:00] VITALS: BP 130/52
[2022-01-08 16:00] VITALS: BP 126/50
[2022-01-08 20:00] VITALS: BP 123/56
[2022-01-08] MEDS ORDERED: SENNOSIDES 8.6MG TABLET PO PRN (21:00)
[2022-01-09] VITALS (7 sets, daily range): BP systolic 102–136; BP diastolic 31–92
[2022-01-09] MEDS: BLOOD SUGAR DIAGNOSTIC STRIP TEST SCH ×4 (05:55→20:17)
[2022-01-09] MEDS: HYDRALAZINE HCL 50MG TABLET PO SCH ×3 (05:55→21:00)
[2022-01-09] MEDS: PANTOPRAZOLE 40MG DR TABLET PO SCH ×2 (05:55→20:59)
[2022-01-09 06:17] LABS: BASOPHILS % 0.9 % (0.0-2.0); EOSINOPHILS % 2.6 % (0.0-5.0); HEMATOCRIT. 22.9 % (36.0-48.0); HEMOGLOBIN. 7.8 g/dL (12.0-16.0); LYMPHOCYTES % 22.4 % (20.0-50.0); MEAN CORPUSCULAR HEMOGLOBIN 29.8 pg (28.0-32.0); MEAN CORPUSCULAR VOLUME 87.8 fL (81.0-99.0); MEAN PLATELET VOLUME 8.6 fl (7.4-10.4); MONOCYTES % 11.2 % (2.0-8.0); NEUTROPHILS % 62.9 % (40.0-76.0); PLATELET 216 x1000/uL (130-400); RED BLOOD CELL COUNT 2.61 mill/uL (4.2-5.4); RED CELL DISTRIBUTION WIDTH 19.1 % (11.6-14.6)
[2022-01-09] MEDS: INSULIN LISPRO 100 UNITS/ML SUBCUT SCH ×4 (06:33→20:17)
[2022-01-09] MEDS: MINOXIDIL 2.5MG TABLET PO SCH (09:00)
[2022-01-09] MEDS: DILTIAZEM HCL 30MG TABLET PO SCH ×2 (09:00→17:34)
[2022-01-09] MEDS: POTASSIUM CHLORIDE 20MEQ TABLET SR PO SCH (10:15)
[2022-01-09] MEDS: DOCUSATE SODIUM 100MG CAPSULE PO SCH ×2 (10:15→17:00)
[2022-01-09] MEDS: INSULIN GLARGINE UD 100 UNITS/ML SYR SUBCUT SCH (10:19)
[2022-01-10] VITALS: BP 138/59
[2022-01-10 04:00] VITALS: BP 141/59
[2022-01-10] MEDS: PANTOPRAZOLE 40MG DR TABLET PO SCH ×2 (05:45→21:08)
[2022-01-10] MEDS: HYDRALAZINE HCL 50MG TABLET PO SCH ×3 (05:45→21:08)
[2022-01-10] MEDS: BLOOD SUGAR DIAGNOSTIC STRIP TEST SCH ×4 (06:03→20:54)
[2022-01-10 06:30] LABS: BASOPHILS % 1.2 % (0.0-2.0); EOSINOPHILS % 3.2 % (0.0-5.0); HEMATOCRIT. 22.8 % (36.0-48.0); HEMOGLOBIN. 7.8 g/dL (12.0-16.0); LYMPHOCYTES % 23.5 % (20.0-50.0); MEAN CORPUSCULAR VOLUME 88.2 fL (81.0-99.0); MEAN PLATELET VOLUME 8.7 fl (7.4-10.4); MONOCYTES % 12.2 % (2.0-8.0); NEUTROPHILS % 59.9 % (40.0-76.0); PLATELET 221 x1000/uL (130-400); RED BLOOD CELL COUNT 2.59 mill/uL (4.2-5.4); RED CELL DISTRIBUTION WIDTH 18.8 % (11.6-14.6)
[2022-01-10] MEDS: INSULIN LISPRO 100 UNITS/ML SUBCUT SCH ×4 (06:43→20:54)
[2022-01-10 08:00] VITALS: BP 113/59
[2022-01-10] MEDS: DOCUSATE SODIUM 100MG CAPSULE PO SCH ×3 (09:00→16:35)
[2022-01-10] MEDS: POTASSIUM CHLORIDE 20MEQ TABLET SR PO SCH (09:17)
[2022-01-10] MEDS: DILTIAZEM HCL 30MG TABLET PO SCH ×2 (09:19→16:42)
[2022-01-10] MEDS: MINOXIDIL 2.5MG TABLET PO SCH (09:19)
[2022-01-10 12:21] VITALS: BP 120/50
[2022-01-10] MEDS: INSULIN GLARGINE UD 100 UNITS/ML SYR SUBCUT SCH (13:16)
[2022-01-10 16:00] VITALS: BP 128/46
[2022-01-10 20:00] VITALS: BP 121/67
[2022-01-11] VITALS: BP 141/51
[2022-01-11 04:00] VITALS: BP 125/55
[2022-01-11] MEDS: BLOOD SUGAR DIAGNOSTIC STRIP TEST SCH ×4 (05:58→20:55)
[2022-01-11] MEDS: PANTOPRAZOLE 40MG DR TABLET PO SCH ×2 (06:19→20:59)
[2022-01-11] MEDS: INSULIN LISPRO 100 UNITS/ML SUBCUT SCH ×4 (06:19→21:03)
[2022-01-11] MEDS: HYDRALAZINE HCL 50MG TABLET PO SCH ×3 (06:19→21:04)
[2022-01-11 07:49] LABS: BASOPHILS % 1.1 % (0.0-2.0); EOSINOPHILS % 3.3 % (0.0-5.0); HEMATOCRIT. 23.1 % (36.0-48.0); HEMOGLOBIN. 7.6 g/dL (12.0-16.0); MEAN CORPUSCULAR HEMOGLOBIN 29.5 pg (28.0-32.0); MEAN CORPUSCULAR VOLUME 89.2 fL (81.0-99.0); MEAN PLATELET VOLUME 8.6 fl (7.4-10.4); MONOCYTES % 11.4 % (2.0-8.0); NEUTROPHILS % 59.2 % (40.0-76.0); PLATELET 218 x1000/uL (130-400); RED BLOOD CELL COUNT 2.59 mill/uL (4.2-5.4); RED CELL DISTRIBUTION WIDTH 18.9 % (11.6-14.6)
[2022-01-11 08:00] VITALS: BP 132/51
[2022-01-11] MEDS: MINOXIDIL 2.5MG TABLET PO SCH (09:00)
[2022-01-11] MEDS: POTASSIUM CHLORIDE 20MEQ TABLET SR PO SCH (09:32)
[2022-01-11] MEDS: DILTIAZEM HCL 30MG TABLET PO SCH ×2 (09:32→17:54)
[2022-01-11] MEDS: DOCUSATE SODIUM 100MG CAPSULE PO SCH ×2 (09:33→16:57)
[2022-01-11] MEDS: INSULIN GLARGINE UD 100 UNITS/ML SYR SUBCUT SCH (10:14)
[2022-01-11 12:00] VITALS: BP 121/54
[2022-01-11 16:11] VITALS: BP 119/48
[2022-01-11 16:52] LABS: TOTAL IRON BINDING CAPACITY 216 ug/dL (250-450)
[2022-01-11 16:59] LABS: FOLIC ACID (FOLATE) SERUM 7.6 ng/mL (>5.38)
[2022-01-11] MEDS: FERROUS SULFATE 325MG TABLET PO SCH (17:54)
[2022-01-11 20:00] VITALS: BP 135/64
[2022-01-12] VITALS: BP 139/62
[2022-01-12 04:00] VITALS: BP 152/58
[2022-01-12] MEDS: HYDRALAZINE HCL 50MG TABLET PO SCH ×2 (05:41→15:23)
[2022-01-12] MEDS: BLOOD SUGAR DIAGNOSTIC STRIP TEST SCH ×2 (05:43→12:20)
[2022-01-12] MEDS: PANTOPRAZOLE 40MG DR TABLET PO SCH (05:43)
[2022-01-12] MEDS: INSULIN LISPRO 100 UNITS/ML SUBCUT SCH ×2 (06:15→12:15)
[2022-01-12 07:43] LABS: BASOPHILS % 1.3 % (0.0-2.0); EOSINOPHILS % 3.5 % (0.0-5.0); HEMOGLOBIN. 8.2 g/dL (12.0-16.0); LYMPHOCYTES % 22.9 % (20.0-50.0); MEAN CORPUSCULAR HEMOGLOBIN 30.6 pg (28.0-32.0); MEAN CORPUSCULAR VOLUME 89.1 fL (81.0-99.0); MEAN PLATELET VOLUME 8.7 fl (7.4-10.4); NEUTROPHILS % 62.3 % (40.0-76.0); PLATELET 228 x1000/uL (130-400); RED CELL DISTRIBUTION WIDTH 18.7 % (11.6-14.6)
[2022-01-12 08:00] VITALS: BP 137/60
[2022-01-12] MEDS: DOCUSATE SODIUM 100MG CAPSULE PO SCH (09:00)
[2022-01-12] MEDS: FERROUS SULFATE 325MG TABLET PO SCH (09:46)
[2022-01-12] MEDS: POTASSIUM CHLORIDE 20MEQ TABLET SR PO SCH (09:46)
[2022-01-12] MEDS: DILTIAZEM HCL 30MG TABLET PO SCH (09:46)
[2022-01-12] MEDS: MINOXIDIL 2.5MG TABLET PO SCH (09:47)
[2022-01-12] MEDS: INSULIN GLARGINE UD 100 UNITS/ML SYR SUBCUT SCH (11:00)
[2022-01-12 12:00] VITALS: BP 140/52
[2022-01-12 14:18] VITALS: BP 135/60
[2022-01-12 16:00] VITALS: BP 164/72
== END 2022-01-12 17:20 | disposition home or self-care (01) | DRG 871 ==
LOC: ER 07:49 → 5WST 10:43
PROVIDERS: ADMIT Internal Medicine; ATTEND Internal Medicine
PROC: 5A1D70Z Performance of Urinary Filtration, Intermittent, Less than 6 Hours Per Day (ICD-10-PCS; 2021-12-23)
PROC: 0JH63XZ Insertion of Tunneled Vascular Access Device into Chest Subcutaneous Tissue and Fascia, Percutaneous Approach (ICD-10-PCS; principal; 2021-12-24)
PROC: 02HV33Z Insertion of Infusion Device into Superior Vena Cava, Percutaneous Approach (ICD-10-PCS; 2021-12-24)
PROC: B5181ZA Fluoroscopy of Superior Vena Cava using Low Osmolar Contrast, Guidance (ICD-10-PCS; 2021-12-24)
PROC: B548ZZA Ultrasonography of Superior Vena Cava, Guidance (ICD-10-PCS; 2021-12-24)
PROC: 5A1D70Z Performance of Urinary Filtration, Intermittent, Less than 6 Hours Per Day (ICD-10-PCS; 2021-12-25)
PROC: 02HV33Z Insertion of Infusion Device into Superior Vena Cava, Percutaneous Approach (ICD-10-PCS; 2021-12-26)
PROC: B5181ZA Fluoroscopy of Superior Vena Cava using Low Osmolar Contrast, Guidance (ICD-10-PCS; 2021-12-26)
PROC: B548ZZA Ultrasonography of Superior Vena Cava, Guidance (ICD-10-PCS; 2021-12-26)
PROC: 5A1D70Z Performance of Urinary Filtration, Intermittent, Less than 6 Hours Per Day (ICD-10-PCS; 2021-12-26)
PROC: 5A1D70Z Performance of Urinary Filtration, Intermittent, Less than 6 Hours Per Day (ICD-10-PCS; 2021-12-28)
PROC: 30233N1 Transfusion of Nonautologous Red Blood Cells into Peripheral Vein, Percutaneous Approach (ICD-10-PCS; 2021-12-31)
PROC: 5A1D70Z Performance of Urinary Filtration, Intermittent, Less than 6 Hours Per Day (ICD-10-PCS; 2021-12-31)
PROC: 5A1D70Z Performance of Urinary Filtration, Intermittent, Less than 6 Hours Per Day (ICD-10-PCS; 2022-01-04)
PROC: 5A1D70Z Performance of Urinary Filtration, Intermittent, Less than 6 Hours Per Day (ICD-10-PCS; 2022-01-07)
PROC: 5A1D70Z Performance of Urinary Filtration, Intermittent, Less than 6 Hours Per Day (ICD-10-PCS; 2022-01-09)
PROC: 5A1D70Z Performance of Urinary Filtration, Intermittent, Less than 6 Hours Per Day (ICD-10-PCS; 2022-01-11)
DX: A40.1 Sepsis due to streptococcus, group B (principal); N18.6 End stage renal disease; J15.0 Pneumonia due to Klebsiella pneumoniae; G92.8 Other toxic encephalopathy; I50.33 Acute on chronic diastolic (congestive) heart failure; I13.2 Hypertensive heart and chronic kidney disease with heart failure and with stage 5 chronic kidney disease, or end stage renal disease; E87.1 Hypo-osmolality and hyponatremia; E87.3 Alkalosis; I50.30 Unspecified diastolic (congestive) heart failure; N17.9 Acute kidney failure, unspecified; E11.22 Type 2 diabetes mellitus with diabetic chronic kidney disease; E87.6 Hypokalemia; E11.65 Type 2 diabetes mellitus with hyperglycemia; N30.90 Cystitis, unspecified without hematuria; E11.21 Type 2 diabetes mellitus with diabetic nephropathy; D63.8 Anemia in other chronic diseases classified elsewhere; Z20.822 Contact with and (suspected) exposure to COVID-19; E86.9 Volume depletion, unspecified; G90.8 Other disorders of autonomic nervous system; Z99.2 Dependence on renal dialysis; Z86.16 Personal history of COVID-19; Z79.82 Long term (current) use of aspirin
CPT/HCPCS: 36415; 36558; 36573; 36600; 71045; 74176; 76770; 76937; 77001; 80048; 80053; 80202; 81003; 82010; 82375; 82550; 82553; 82607; 82728; 82746; 82805; 82962; 83036; 83540; 83550; 83735; 83880; 83930; 83935; 84100; 84132; 84300; 84443; 84484; 85014; 85018; 85025; 85027; 85044; 86705; 86706; 86709; 86803; 86850; 86900; 86920; 87077; 87186; 87340; 87426; 93005; 93306; 93880; 93970; 97162; 99152; 99153; 99291; C1725; C1750; C1769; C1887; C1893; J0885; J1644; J1815; J2185; J2543; J3010; J3370; J3480; J3490; J7030; J7040; J7060; P9016; U0003; U0005; G0500